=== PATIENT | female | born 1990 | race Caucasian/White ===

== ENCOUNTER 2025-05-22 19:36 | Emergency (ER) | payer SELFPAY ==
[~2025-05-22] VITALS: Ht 177.8 cm; Wt 89.0 kg
[2025-05-22 20:11] VITALS: O2SAT 98
[2025-05-22] MEDS ORDERED: KETO10TA2 MT (22:40)
[2025-05-22 23:12] VITALS: BP 124/79; PULSE 89; RESP 20; TEMP 36.9; O2SAT 100
== END 2025-05-22 23:17 | disposition home or self-care (01) ==
LOC: ER 19:36
DX: M25.561 Pain in right knee (principal); M25.461 Effusion, right knee
CPT/HCPCS: 81025; 73562; 29505; 99283; Z7610